=== PATIENT | female | born 1965 | race Caucasian/White ===

== ENCOUNTER → 2024-03-05 14:49 | Outpatient (REF) | payer OTHER, SELFPAY | LOC: WDC 14:49 | PROVIDERS: ATTENDING PHYSICIAN Physician Assistant Medical; FAMILY PHYSICIAN Family Medicine | DX: Z12.31 Encounter for screening mammogram for malignant neoplasm of breast (principal) | CPT/HCPCS: 77063; 77067 ==

== ENCOUNTER 2025-04-04 18:39 | Emergency (ER) | payer OTHER, SELFPAY ==
[2025-04-04 18:43] VITALS: BP 152/89
--- NOTE | 2025-04-04 19:04 | ED.GENMED ---
History of Present Illness
General
Chief Complaint: DVT/Possible Blood Clot
Time Seen by Provider: 04/04/25 18:56
History of Present Illness
History of Present Illness:
FOCUSED PAST MEDICAL HISTORY
- Uterine cancer
REVIEW OF OLD RECORDS
- The patient had a screening colonoscopy in 2021
Note:
CHIEF COMPLAINT(S)
Swelling, redness, and warmth in the right leg.
HISTORY OF PRESENT ILLNESS
The patient is a 59-year-old female with a history of lymphedema affecting her leg, the other leg is not visibly affected. The patient described an incident last Friday where she tripped over a lounge chair in the dark and sustained an injury to the
front part of her leg. She initially thought the situation was improving, but today noticed increased redness and warmth in the affected area. This prompted her concern and visit to the emergency room. She mentioned a history of using compression
stockings intermittently. The patient denies any issues related to her lungs or difficulty breathing but reported a previous urgent care visit where her heart rate was elevated. The urgent care provider referred her to the emergency room for further
evaluation.
PAST MEDICAL AND SURGICAL HISTORY
Chronic lymphedema in one leg.
PHYSICAL EXAM
General: Alert, no acute distress.
Skin: Warm, dry. Increased warmth and redness noted on the right leg which patient states is acute. The warmth is most prominent distal to the knee but there also is some warmth in the posterior thigh, there is also some questionable petechial kind
of appearance at the thigh.
Head: Normocephalic, atraumatic.
Neck: Supple, trachea midline.
Eye Ears, Nose, Mouth, and Throat: Oral mucosa moist.
Cardiovascular: Normal peripheral perfusion, no edema observed.
Respiratory: Respirations are non-labored.
Gastrointestinal: Abdomen nondistended.
Back: Normal range of motion, normal alignment.
Musculoskeletal: There is right greater than left lower extremity edema which patient states is chronic
Neurological: Alert and oriented to person, place, time, and situation, No focal neurological deficit observed.
Psychiatric: Cooperative, appropriate mood & affect.
PROBLEM LIST
Acute Problems:
1. Right leg injury with erythema and warmth.
2. Possible infection of the right leg.
CHRONIC MEDICAL CONDITIONS SIGNIFICANTLY AFFECTING CARE
Lymphedema affecting the right leg.
PLAN
1. Obtain an ultrasound of the right leg to rule out deep vein thrombosis.
2. Initiate treatment with cephalexin for suspected infection.
3. Monitor for improvement in symptoms following antibiotic therapy.
DIFFERENTIAL DIAGNOSIS
The Differential Diagnosis includes, in no particular order and is not limited to:
1. Cellulitis
2. Deep vein thrombosis
3. Lymphangitis
4. Superficial thrombophlebitis
5. Contusion or hematoma
6. Abscess
7. Venous insufficiency
8. Erysipelas
9. Contact dermatitis
10. Liposclerotic panniculitis
RADIOLOGY
- Ultrasound imaging obtained which shows no DVT
UPDATE
- I am concerned for the likelihood of infection. Will start Keflex for cellulitis
SUMMARY OF ENCOUNTER
The patient, a 59-year-old female with a history of lymphedema in one leg, presented to the emergency department with swelling, redness, and warmth in the right leg following an injury. The patient tripped over a lounge chair and injured the right
leg, which had initially shown signs of improvement before worsening. Increased redness and warmth were noted, raising concerns about a potential infection. Due to the difficulty in distinguishing between inflammation due to lymphedema and an actual
infection, the decision was made to start antibiotic treatment. The patient received an initial dose of the antibiotic cephalexin in the emergency department, and a prescription was sent to her pharmacy.
DISPOSITION
Discharge.
ASSESSMENT
Right leg injury with erythema and warmth suggesting possible infection versus inflammation secondary to lymphedema.
EMERGENCY TREATMENTS ADMINISTERED
One dose of cephalexin was administered for suspected infection.
PLAN
1. Begin treatment with cephalexin for the suspected infection.
2. Advise the patient to keep the leg elevated to reduce swelling.
3. Instruct the patient to monitor for improvement over the next 48 hours; if symptoms worsen or do not improve, return to the emergency department.
4. Follow up with the patients primary care physician as planned.
PATIENT EDUCATION AND COUNSELING
The patient was advised on the importance of keeping the leg elevated. She was informed that the redness and warmth might be due to an infection requiring antibiotic treatment, but could also be inflammation related to her existing lymphedema. She
was instructed to seek further medical evaluation if symptoms worsen or do not improve with antibiotics.
FOLLOW-UP INSTRUCTIONS
Follow up with her primary care physician as planned. Return to the emergency department if symptoms worsen rapidly or show no improvement within 48 hours.
MEDICATION RECONCILIATION
1. Cephalexin was administered and a prescription for cephalexin was sent to the patients pharmacy.
MEDICAL DECISION MAKING
-Complexity of Data Reviewed: Chronic conditions affecting care include lymphedema affecting the right leg. Differential diagnosis considered includes cellulitis, deep vein thrombosis, lymphangitis, superficial thrombophlebitis, contusion or
hematoma, abscess, venous insufficiency, erysipelas, contact dermatitis, and liposclerotic panniculitis.
-Data:
Category 1
Tests and documents: Although blood work was considered, it was not performed because a normal white blood cell count would not change the decision to start antibiotics.
-Risk:
Prescription medication was prescribed, specifically cephalexin. Consideration of Admission/Observation: Escalation of care including admission/observation was considered given the complexity and risk of the patients presenting complaint and
underlying comorbidities. However, ultimately the patient is deemed safe for outpatient management with close follow-up. The work-up is reassuring, does not reveal any acute life/organ threatening processes, patients symptoms well-controlled upon
reevaluation, reexamination is reassuring, vitals are stable, patient agreeable with discharge, and reliable for follow-up.
DIAGNOSIS
Acute right lower extremity cellulitis
Chronic right lower extremity lymphedema
Phy Exam
Physical Exam
Physical Exam:
See HPI
Course
Orders/Labs/Results
Orders:
Orders
04/04/25 18:45
US Legs, Right [US Periph Venous LOWER Ext RT] Urgent
Comment:
Reason For Exam: swelling
04/04/25 19:16
Cephalexin Monohydrate [Keflex] 500 mg PO NOW STA
Vital Signs
Initial and Last Documented VS:
Initial Vital Signs
Temp Pulse Resp BP Pulse Ox
36.7 C 79 20 152/89 99
04/04/25 18:43 04/04/25 18:43 04/04/25 18:43 04/04/25 18:43 04/04/25 18:43
Last Documented Vital Signs
Temp Pulse Resp BP Pulse Ox
36.7 C 79 20 152/89 99
04/04/25 18:43 04/04/25 18:43 04/04/25 18:43 04/04/25 18:43 04/04/25 19:08
*Pulse Oximetry
SaO2: 99
Oxygen Mode of Delivery: Room air
Patient hypoxic: no
*Critical Care Note
Total Time (30-74mins, 75-104mins- exclusive of procedures): Not Applicable
ED Attending Note
-
Portions of this chart may have been created with voice recognition software.� Occasional wrong word or��sound alike� substitutions may have occurred due to the inherent limitations of voice recognition software.
Discharge Plan
Departure
Patient Disposition: Home (Routine Discharge)
Date of Disposition: 04/04/25
Time of Disposition: 20:50
Patient with high blood pressure during this ER visit?: Yes
Discharge Problem:
Cellulitis
Instructions: Cellulitis (Skin Infection), Adult (DC), BLOOD PRESSURE
Prescriptions:
New
cephalexin 500 mg capsule
500 mg PO TID Qty: 21 0RF
Referrals:
Mehreen Washington MD [Family Provider, Family Practice]
Activity Restrictions/Additional Instructions:
I sent a prescription for Keflex to your pharmacy. Return here if worse or other concerns. Return if there is been no improvement after 48 hours.
Interventions
Interventions:
*General Assessment Last Done: 04/04/25 18:43
*Nursing Disposition Last Done: 04/04/25 20:55
ED- Cardiac Assessment Last Done: 04/04/25 19:20
ED- Pulmonary Assessment Last Done: 04/04/25 19:20
ED-Peripheral Vascular Assessment Last Done: 04/04/25 19:20
ED-Skin Assessment Last Done: 04/04/25 19:20
Discharge Date and Time
Discharge Date/Time: 04/04/25 20:55
Print Language: [place]
[2025-04-04] MEDS: KEFLEX 500 MG PO (19:27)
== END 2025-04-04 20:55 | disposition home or self-care (01) ==
LOC: EMR 18:39
PROVIDERS: EMERGENCY PHYSICIAN Emergency Medicine; FAMILY PHYSICIAN Family Medicine
DX: L03.115 Cellulitis of right lower limb (principal); I89.0 Lymphedema, not elsewhere classified; Z85.42 Personal history of malignant neoplasm of other parts of uterus
CPT/HCPCS: 99284; 93971